=== PATIENT | male | born 1950 | race Caucasian/White ===

== ENCOUNTER 2018-11-15 10:52 | Outpatient (CLI) | payer MEDICARE | END 2018-11-15 23:59 | disposition home or self-care (01) | LOC: RAD 10:52 | PROVIDERS: ATTEND Physician Assistant | DX: M16.11 Unilateral primary osteoarthritis, right hip (principal); K92.2 Gastrointestinal hemorrhage, unspecified | CPT/HCPCS: 36415; 74018; 85025 ==